=== PATIENT | male | born 1990 | race Hispanic/Latino ===

== ENCOUNTER 2018-08-07 23:08 | Emergency (ER) | payer SELFPAY | END 2018-08-07 23:58 | disposition home or self-care (01) | LOC: NAV ERS 23:08 | DX: G44.209 Tension-type headache, unspecified, not intractable (principal); J45.909 Unspecified asthma, uncomplicated; I10 Essential (primary) hypertension; F17.210 Nicotine dependence, cigarettes, uncomplicated | CPT/HCPCS: 99281 ==